=== PATIENT | male | born 1975 | race Asian ===

== ENCOUNTER 2016-12-14 15:44 | Emergency (ER) | payer OTHER ==
[~2016-12-14] VITALS: Ht 170.2 cm; Wt 79.4 kg
== END 2016-12-14 17:23 | disposition home or self-care (01) ==
LOC: ED 15:44
DX: N41.0 Acute prostatitis (principal)
CPT/HCPCS: 81000; 87590; 99283

== ENCOUNTER 2017-07-27 12:13 | Emergency (ER) | payer OTHER ==
[~2017-07-27] VITALS: Ht 167.6 cm; Wt 80.4 kg
== END 2017-07-27 12:59 | disposition home or self-care (01) ==
LOC: ED 12:13
DX: M54.9 Dorsalgia, unspecified (principal)
CPT/HCPCS: 99281

== ENCOUNTER 2018-12-03 17:26 | Emergency (ER) | payer OTHER ==
[~2018-12-03] VITALS: Ht 165.1 cm; Wt 84.8 kg
[2018-12-03 19:44] VITALS: BP 142/90; TEMP 98
== END 2018-12-03 19:44 | disposition home or self-care (01) ==
LOC: ED 17:26
DX: J02.9 Acute pharyngitis, unspecified (principal)
CPT/HCPCS: 87651; 99282

== ENCOUNTER 2019-01-03 10:50 | Emergency (ER) | payer OTHER ==
[~2019-01-03] VITALS: Ht 165.1 cm; Wt 84.8 kg
[2019-01-03 10:55] VITALS: BP 99/64; TEMP 98
== END 2019-01-03 14:00 | disposition home or self-care (01) ==
LOC: ED 10:50
DX: S39.012A Strain of muscle, fascia and tendon of lower back, initial encounter (principal); M47.896 Other spondylosis, lumbar region
CPT/HCPCS: 99284

== ENCOUNTER 2019-04-11 12:28 | Emergency (ER) | payer OTHER ==
[~2019-04-11] VITALS: Ht 175.3 cm; Wt 74.8 kg
[2019-04-11 14:20] VITALS: BP 115/67; TEMP 98.6
== END 2019-04-11 14:20 | disposition home or self-care (01) ==
LOC: ED 12:28
DX: M54.16 Radiculopathy, lumbar region (principal)
CPT/HCPCS: 99283